=== PATIENT | male | born 1965 | race Hispanic/Latino ===

== ENCOUNTER 2021-03-11 13:11 | Emergency (ER) | payer SELFPAY ==
[~2021-03-11] VITALS: Ht 170.2 cm; Wt 90.0 kg
[~2021-03-11 13:11] MED LIST: AMOXICILLIN500 MG PO; MECLIZINE25 MG PO; ONDANSETRON4 MG PO; ULTRAM50 M1 PO; [UNRECOGNIZED DRUG - REMARK]; [UNRECOGNIZED DRUG - REMARK]; [UNRECOGNIZED DRUG - REMARK] PO
[2021-03-11 17:30] VITALS: BP 175/80
== END 2021-03-11 17:30 | disposition home or self-care (01) | DRG 561 ==
LOC: ED 13:11 → EDBD 13:11 → ED 16:42
DX: T84.84XA Pain due to internal orthopedic prosthetic devices, implants and grafts, initial encounter (principal); Y83.1 Surgical operation with implant of artificial internal device as the cause of abnormal reaction of the patient, or of later complication, without mention of misadventure at the time of the procedure